=== PATIENT | female | born 1975 | race Caucasian/White ===

== ENCOUNTER → 2023-12-13 12:42 | Outpatient (REF) | payer MEDICARE, MEDICAID, SELFPAY | LOC: WDC 12:42 | PROVIDERS: ATTENDING PHYSICIAN Obstetrics & Gynecology; FAMILY PHYSICIAN Internal Medicine | DX: Z12.31 Encounter for screening mammogram for malignant neoplasm of breast (principal) | CPT/HCPCS: 77063; 77067 ==

== ENCOUNTER → 2024-02-02 10:54 | Outpatient (REF) | payer MEDICARE, MEDICAID, SELFPAY | LOC: HWRAD 10:54 | PROVIDERS: ATTENDING PHYSICIAN Internal Medicine | DX: E04.2 Nontoxic multinodular goiter (principal) | CPT/HCPCS: 76536 ==

== ENCOUNTER → 2024-04-26 15:33 | Outpatient (REF) | payer MEDICARE, MEDICAID, SELFPAY | LOC: RCS 15:33 | PROVIDERS: ATTENDING PHYSICIAN Family Medicine | DX: K02.9 Dental caries, unspecified (principal) | CPT/HCPCS: 93306 ==

== ENCOUNTER → 2024-09-14 10:02 | Outpatient (REF) | payer MEDICARE, MEDICAID, SELFPAY | LOC: RAD 10:02 | PROVIDERS: ATTENDING PHYSICIAN Family Medicine | DX: M54.2 Cervicalgia (principal) | CPT/HCPCS: 72050 ==

== ENCOUNTER 2025-04-15 04:53 | Inpatient (IN) | payer MEDICARE, MEDICAID, SELFPAY ==
[2025-04-14 22:33] VITALS: BP 117/59
[2025-04-14 22:41] LABS: Glucose - Point of Care 95 mg/dl (70-99)
[2025-04-14 23:00] VITALS: BP 113/43
[2025-04-14 23:08] VITALS: BP 113/43; BMI 33.1
[2025-04-15] VITALS (16 sets, daily range): BP systolic 98–126; BP diastolic 55–74; PULSE 70; O2SAT 96–97; BMI 32.3
--- NOTE | 2025-04-15 00:25 | ED.GENMED ---
History of Present Illness
General
Chief Complaint: Change in Mental Status
Source: aged or disabled carer
Exam Limitations: non verbal-adult, altered mental status and developmental stage
Time Seen by Provider: 04/14/25 23:34
Nursing documentation reviewed up to this point in time: agreed with
History of Present Illness
History of Present Illness:
49-year-old female with Down syndrome absence seizure's presents with lethargy, weakness onset around 6 PM right-sided facial weakness and right arm weakness, she took her normal evening meds, she looks tired here although staff states that is her
usual self, she is nonverbal gets around okay no trauma no access to any alcohol no access to extra meds no recent seizures
Past History
Past History
ED Past Medical History: Seizures, Psychiatric and Other (Down's syndrome)
ED Past Surgical History: None
Social History
Tobacco: Non-smoker
Alcohol: None
Drug: None
Personal: Single
Living: other (Support home)
Employment: Not employed
Family History
Family History: Unable to obtain
Review of Systems
Review of Systems
Other source history: other (Caregiver)
All Other Systems: Not applicable
Phy Exam
Physical Exam
Physical Exam:
Physical Exam
General: 49 female sleepy easily arousable follows simple command typical features of Down's
Neck: No tongue
Heart: Regular
Lungs: no acute respiratory distress. clear bilaterally
Abdomen: Obese soft
Neuro: Follows simple commands right facial palsy drift in the right upper extremity
Skin: no rash
Psychiatric: Cooperative flat affect
Extremities: no edema.
Course
Orders/Labs/Results
Orders:
Orders
04/15/25 00:01
CT Head W/o Iv Contrast Urgent
Comment:
Reason For Exam: right sided weakenss
EEG [Rapid Point of Care EEG (ED/ICU ONLY)] Q1H
Indications for use:: Altered Mental Status
04/15/25 00:02
Urinalysis Reflex To Culture Urgent
04/15/25 00:16
Complete Blood Count/With Diff Urgent
Comprehensive Metabolic Panel Urgent
Lyme Progressive Urgent
04/15/25 00:27
Add On- LAB Urgent
Tests Added?: Lyme progressive
04/15/25 01:20
Aspirin 325 mg PO NOW STA
04/15/25 01:21
Electrocardiogram (*1) Urgent
Reason for Study: TIA/Stroke
EKG- Treatment ONCE
Abnormal Lab Results
04/15/25
00:16
MCH 32.2 H pg
(27.0-31.0)
MPV 11.4 H fL
(7.4-10.4)
BUN 18 H mg/dl
(7-17)
04/15/25 00:16
04/15/25 00:16
Vital Signs
Initial and Last Documented VS:
Initial Vital Signs
BP
117/59
04/14/25 22:33
Last Documented Vital Signs
Pulse Resp BP Pulse Ox
67 18 122/74 100
04/14/25 23:08 04/14/25 23:08 04/15/25 00:15 04/15/25 01:03
*Radiology
Radiology exam reviewed: radiology read reviewed
*Pulse Oximetry
SaO2: 98
Oxygen Mode of Delivery: Room air
Patient hypoxic: no
*EKG
Interpreted by ED Provider?: Yes
Interpretation: normal
Comparison EKG: no comparison EKG present
Heart Rate: 78
Rate: normal
Rhythm: sinus
Ischemia: no ischemia
*Professional Athletes Coach Interpretation
Rate: normal
Interpretation: normal
Heart Rate: 78
Rhythm: sinus
*Critical Care Note
Total Time (30-74mins, 75-104mins- exclusive of procedures): 11
Update Note
Update Note:
1:15 AM, reviewed vision radiology subacute left basal ganglia stroke
Think this would explain her right sided symptoms
I do not believe the patient is a TNK candidate due to unclear onset likely more than 4-1/2 hours
Will keep her in the hospital started on aspirin
ED Attending Note
-
Portions of this chart may have been created with voice recognition software.� Occasional wrong word or��sound alike� substitutions may have occurred due to the inherent limitations of voice recognition software.
Discharge Plan
Departure
Patient Disposition: Admit
Date of Disposition: 04/15/25
Time of Disposition: 01:21
Admit to: Telemetry
Presentation/result/management discussed w/ accepting MD/DO: Hospitalist
Patient with high blood pressure during this ER visit?: No
Covid-19: Not Applicable
Discharge Problem:
Acute CVA (cerebrovascular accident)
Prescriptions:
No Action
mometasone 0.1 % ointment
1 applic topical PRN PRN (Reason: itchy)
fluvoxamine 50 MG tablet
100 mg PO DAILY
fluticasone propionate [Flonase Allergy Relief] 9.9 ML spray,suspension
9.9 ml NS DAILY
ciclopirox 15 GM cream
15 gm TP DAILY
cholecalciferol (vitamin D3) [Vitamin D3] 2,000 UNIT capsule
2,000 unit PO DAILY
Referrals:
Mata Whatley MD [Family Provider, Family Practice]
Interventions
Interventions:
*Risk Screen - Suicide Last Done: 04/14/25 23:08
*General Assessment Last Done: 04/14/25 23:08
*Neglect/Abuse Screening Last Done: 04/14/25 23:08
*ED- Fall Risk Assessment Last Done: 04/14/25 23:08
*ED COVID-19 Vaccine History Last Done: 04/14/25 23:08
ED- Pulmonary Assessment Last Done: 04/15/25 01:08
ED- Neurological Assessment Last Done: 04/15/25 01:08
ED- Cardiac Assessment Last Done: 04/15/25 01:08
Discharge Date and Time
Print Language: CZECH
[2025-04-15 00:52] LABS: Hematocrit 43.6 % (37.0-47.0); Hemoglobin 14.5 g/dL (12.0-16.0); Mean Corp Hgb Conc. 33.3 g/dL (33.0-37.0); Mean Corpuscular Volume 96.9 fL (81.0-99.0); Nucleated Red Blood Cells % 0 %; Platelet Count 210 10^3/uL (130-400); Red Cell Dist. Width 13.3 % (11.5-14.5)
[2025-04-15 00:56] LABS: ALT (SGPT) 26 U/L (0-35); AST (SGOT) 25 U/L (14-36); Albumin 4.4 g/dl (3.5-5.0); Alkaline Phosphatase 59 U/L (38-126); Blood Urea Nitrogen 18 mg/dl (7-17); Calcium 9.6 mg/dl (8.4-10.2); Carbon Dioxide 29 mmol/L (22-30); Chloride 107 mmol/L (98-107); Estimated Creatinine Clearance 69 ml/min; Glucose 96 mg/dl (70-99); Potassium 4.5 mmol/L (3.5-5.1); Sodium 141 mmol/L (135-145); Total Protein 6.8 g/dl (6.3-8.2); eGFR > 60.00
[2025-04-15] MEDS: ASPIRIN 325 MG PO (01:39)
--- NOTE | 2025-04-15 04:41 | HPS.HSE ---
Family Physician
-
Family Physician: Mata Whatley
Chief Complaint
-
Lethargy
History of Present Illness
Patient is a 49y F with PMH significant for Down's syndrome and SHELDON who presents to ED from care facility due to lethargy and altered mental status. History obtained from caregiver at the bedside and ED report. Caregiver present states that
patient was noted to be sleepy / lethargic and was unable to walk up the steps this evening. She was brought to the ED for further evaluation. No other / specific recent complaints or noted symptoms.
Caregiver here now states that patient does speak at baseline - other notes report that she is non-verbal.
At the time of my examination, patient is sleeping. She opens eyes to tactile and verbal stimuli. She does not answer questions or follow commands at present.
Medical History
Past Medical History
Past Medical History: Reports Other
Additional Past Medical History:
Trisomy 21
Anxiety / Depression
SHELDON (resolved after T&A)
Obesity
Past Surgical History: Reports Other
Additional Past Surgical History:
T&A
Social History
Tobacco: Non-smoker
Alcohol: None
Drug: None
Family History
Family History: Unable to Obtain
Allergies / Home Medications
Allergies reflects when Allergies were last updated in [email or web address].
Home Medications with original date entered in [email or web address]
Allergy/Medication List:
Med list not currently available.
Caregiver notes that staff will bring list in the AM.
If medication reconciliation has not been performed, why?: Medication List N/A
Review of Systems
-
Unable to obtain full review of systems at this time due to: Patient Non-verbal
Physical Exam
Vital Signs
Vital Signs
Pulse Resp BP Pulse Ox
61 17 102/57 98
04/15/25 02:00 04/15/25 02:00 04/15/25 02:00 04/15/25 02:00
Physical Exam
General: Other (49y F sleeping at present and lethargic / poorly responsive.)
HEENT: Moist mucous membranes and PERRLA
Respiratory: Clear; No Wheezes, Rales or Rhonchi
Cardiac: S1/S2 and Regular Rhythm; No Murmur
GI: Soft, Non Tender, Non Distended and Normal Bowel Sounds
Musculoskeletal: No Clubbing, No Cyanosis and No Edema
Neuro: Other (Very difficult neurologic exam as patient not following commands / participating. Probable R sided weakness in the UE and LE compared to the L.)
Laboratory Results
-
04/15/25 00:16
04/15/25 00:16
Laboratory Results
Total Bilirubin 0.9 mg/dl (0.2-1.3) 04/15/25 00:16
AST 25 U/L (14-36) 04/15/25 00:16
ALT 26 U/L (0-35) 04/15/25 00:16
Alkaline Phosphatase 59 U/L (38-126) 04/15/25 00:16
Impression/Plan
-
A/P: Patient is a 49y F with PMH significant for Down's syndrome who presents to ED for evaluation of lethargy.
Subacute CVA
- Admit for further evaluation and treatment.
- CT scan done in the ED shows probable subacute CVA in the L basal ganglia.
- R weakness appreciated on exam c/w this finding.
- ASA daily for now.
- Neurology evaluation.
- BP already normal / low.
- MRI in AM.
- PT / OT / Speech evaluations.
Lethargy / Altered Mental Status
- ? if this is secondary to CVA as noted above.
- Vitals / labs are otherwise unremarkable.
- No focal symptoms / recent complaints to suggest other process / etiology.
- Follow for clinical improvement.
Down's Syndrome
Anxiety / Depression
- Reconcile meds when able in the AM.
- Resume appropriate medications.
DVT Prophylaxis: SCDs
Code Status: Full
--- NOTE | 2025-04-15 06:30 | PTCARENOTE ---
Pt arrived to unit from ED via stretcher. A&O to self. Pt has Down Syndrome and caregiver at the bedside. Pt pulled over from stretcher to bed. Admission completed and NIH performed on patient. NIH of 8. Care handed off to day shift RN. Plan of care
ongoing.
--- NOTE | 2025-04-15 07:13 | CON.NEURO ---
Consultation
Order
Date of Consultation: 04/15/25
Requesting Provider: Jose Angel Kwan DO
Reason for Consult: CVA
Neurology Consultation Note.
HPI: This is a 49-year-old woman who presented to [facility] on 04/14/2025 with encephalopathy. According to her health club manager, Renea, the patient experienced an episode yesterday where she was 'a little off.'
The patient was observed to have difficulty drinking, with liquid spilling from her mouth. She also experienced dizziness when going up stairs and was described as being more lethargic than usual.
Ms. Armijo' baseline has cognitive deficits and ambulates with no assistive device. She can take shower and dress independently.
ER VS: 117/59, 67, afebrile
EKG: QTc Int : 422 ms
PDMP:none
Labs: CBC, comp�unremarkable.
CT head wo contrast�report is pending.
PMH: Down's syndrome, POTS, OCD, DLP, SHELDON, BMI 32, lactose intolerance, vitamin D deficiency, scoliosis, LS radiculopathy
PSH: Tonsillectomy
SH: lives with caregiver, independent in ambulation
FH: unknown
All:NKDA
ROS: Negative for headache, change in vision or strength.
General: Short flattened face and nose bridge, upward slanting, almond-shaped eyes�with epicanthal folds, Short neck In no acute distress.
Cardio: Regular rate and rhythm without murmur. Extremities are without cyanosis or edema.
Neuro:
Mental Status: Alert, oriented to name and person only. Did not know her age, location. Follows simple requests intermittently. No hemineglect.
Cranial Nerves: Right corneal opacification. Orthophoric primary gaze. Extraocular movement intact. Blink to threat bilaterally. Impaired hearing. Right facial weakness with activation. Mild to moderate dysarthria. Severe hypophonia.
Motor: Reduced motor tone. All limbs are antigravity symmetrically purposefully.
Reflexes: Limited exam due to cooperation. Negative grasp and Nara's bilateral.
Sensory: Localizes noxious stimuli
Coordination: No tremors myoclonic movements
Gait: deferred
Assessment and Plan:
I. Right facial weakness.
II. Down syndrome.
III. Chronic encephalopathy. 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
- Fall precautions
- Brain MRI without doni
- Aspirin 81 mg once a day
- Please check vitamin B12, TFTs
- management will be based on brain MRI results.
- OP sleep study. Prevalence of SHELDON in adults with trisomy 21-�35�100%, with some studies suggesting nearly universal occurrence in older adults with Down syndrome. About half of affected children have severe SHELDON.
I personally reviewed all radiology and labs along with past medical records pertinent to current medical problems. Total time spent in patient care is 60 minutes.
Thank you for allowing us to participate in the care of this patient. We will continue to follow. Please do not hesitate to contact us with any questions or concerns.
Subjective/Objective
Subjective Data
Date of Service: April 15, 2025
Objective Data
Vital Signs
Temp Pulse Resp BP Pulse Ox
36.4 C 77 18 102/61 94
04/15/25 06:30 04/15/25 06:30 04/15/25 06:30 04/15/25 06:30 04/15/25 06:30
Lab Results
04/15/25 00:16
04/15/25 00:16
Sodium 141 mmol/L (135-145) 04/15/25 00:16
Potassium 4.5 mmol/L (3.5-5.1) 04/15/25 00:16
BUN 18 mg/dl (7-17) H 04/15/25 00:16
Glucose 96 mg/dl (70-99) 04/15/25 00:16
Calcium 9.6 mg/dl (8.4-10.2) 04/15/25 00:16
Patient Allergies
dairy Allergy (Uncoded 06/29/20 14:55)
Nausea / Vomiting
Medications
-
Active Medications
Generic Name Dose Route Start Last Admin
Trade Name Freq PRN Reason Stop Dose Admin
Acetaminophen 650 mg 04/15/25 06:43
Acetaminophen 325 Mg Tablet PO 05/13/25 06:42
Q4HPRN PRN
Mild Pain / Temp > 101
Aspirin 81 mg 04/15/25 08:00
Aspirin 81 Mg Chewable Tablet PO 05/13/25 07:59
DAILY MARCIO
Sodium Chloride 0 flush 04/15/25 07:00
Sodium Chloride 0.9% (Flush) Syringe IV 05/13/25 06:59
PER PROTOCOL MARCIO
Home Medications
�Medication �Instructions �Recorded
cholecalciferol (vitamin D3) 50 2,000 unit PO DAILY 06/10/17
mcg (2,000 unit) capsule (Vitamin
D3)
ciclopirox 0.77 % topical cream 15 gm TP DAILY 06/10/17
fluticasone propionate 50 9.9 ml NS DAILY 06/10/17
mcg/actuation nasal
spray,suspension (Flonase Allergy
Relief)
fluvoxamine 50 mg tablet 100 mg PO DAILY 06/10/17
mometasone 0.1 % topical ointment 1 applic topical PRN PRN itchy 06/10/17
Vital Signs and Labs
-
Vital Signs and Labs:
Vital Signs
Temp Pulse Resp BP Pulse Ox
36.4 C 77 18 102/61 94
04/15/25 06:30 04/15/25 06:30 04/15/25 06:30 04/15/25 06:30 04/15/25 06:30
Lab Results
04/15/25 00:16
04/15/25 00:16
Sodium 141 mmol/L (135-145) 04/15/25 00:16
Potassium 4.5 mmol/L (3.5-5.1) 04/15/25 00:16
BUN 18 mg/dl (7-17) H 04/15/25 00:16
Glucose 96 mg/dl (70-99) 04/15/25 00:16
Calcium 9.6 mg/dl (8.4-10.2) 04/15/25 00:16
Medications
-
Medications:
Generic Name Dose Route Start Last Admin
Trade Name Freq PRN Reason Stop Dose Admin
Acetaminophen 650 mg 04/15/25 06:43
Acetaminophen 325 Mg Tablet PO 05/13/25 06:42
Q4HPRN PRN
Mild Pain / Temp > 101
Aspirin 81 mg 04/15/25 08:00
Aspirin 81 Mg Chewable Tablet PO 05/13/25 07:59
DAILY MARCIO
Sodium Chloride 0 flush 04/15/25 07:00
Sodium Chloride 0.9% (Flush) Syringe IV 05/13/25 06:59
PER PROTOCOL MARCIO
Home Medications
-
Home Medications
cholecalciferol (vitamin D3) 50 mcg (2,000 unit) capsule (Vitamin D3) 2,000 unit PO DAILY 06/10/17
ciclopirox 0.77 % topical cream 15 gm TP DAILY 06/10/17
fluticasone propionate 50 mcg/actuation nasal spray,suspension (Flonase Allergy Relief) 9.9 ml NS DAILY 06/10/17
fluvoxamine 50 mg tablet 100 mg PO DAILY 06/10/17
mometasone 0.1 % topical ointment 1 applic topical PRN PRN itchy 06/10/17
[2025-04-15] MEDS: LOW STRENGTH ASPIRIN 81 MG PO (08:44)
--- NOTE | 2025-04-15 09:15 | PTCARENOTE ---
This RN and an additional RN performed an NIH at bedside. NIH score increased from 8 from from nightshift network operations lead to 1 for dayshift network operations lead. Facial droop assessed at rest, ataxia in RUE & RLE observed, and pt arousable but drowsy. TT
neurology to notify and ask whether a rapid should be called. Neurology informed this RN to not to call a rapid. Neurology made aware of assessment.
[2025-04-15 09:56] LABS: Glycohemoglobin (HgbA1c) 5.5 % (4.0-5.6)
--- NOTE | 2025-04-15 11:20 | W.PN.HOSP.TC ---
Today's Communication/Plan
-
Awaiting mRI
Assessment / Plan
Assessment / Plan
49y woman with PMH significant for Down's syndrome who presents to ED for evaluation of lethargy. CT found probable stroke.
Questionable small subacute infarct in the left basal ganglia. MRI would be of greater sensitivity.
1. Possible Subacute CVA
- R weakness appreciated on exam c/w this finding.
- ASA daily for now.
- Neurology evaluation.
- BP already normal / low.
- MRI pending.
- PT / OT / Speech evaluations.
2. Lethargy / Altered Mental Status
- possible that this is secondary to CVA as noted above.
- Vitals / labs are otherwise unremarkable.
- No focal symptoms / recent complaints to suggest other process / etiology.
- Follow for clinical improvement.
3. Down's Syndrome
Anxiety / Depression
- Resume appropriate medications.
- be mindful not to worsen sedation
DVT Prophylaxis: SCDs
Code Status: Full
Anticipated Discharge: 24 - 48 hours
Subjective/Interval History
-
Date of Service: April 15, 2025
Appears comfortable
Objective Data
-
Labs:
Laboratory Results
04/15/25
00:16
WBC 5.2
Hgb 14.5
Hct 43.6
Plt Count 210
Sodium 141
Potassium 4.5
Chloride 107
Carbon Dioxide 29
BUN 18 H
Creatinine 0.9
Glucose 96
Calcium 9.6
Total Bilirubin 0.9
AST 25
ALT 26
Alkaline Phosphatase 59
Vital Signs:
Vital Signs
Temp Pulse Resp BP Pulse Ox
98.4 F 69 18 117/69 93
04/15/25 08:00 04/15/25 08:00 04/15/25 08:00 04/15/25 08:00 04/15/25 08:00
Review of Systems
-
History Source: Patient
All other systems: Reviewed and negative
Physical Exam
-
General: Well Nourished, No Apparent Distress, Comfortable and Obese
HEENT: Moist Mucous Membranes
Respiratory: Clear to Auscultation
Cardiac: Regular Rhythm and S1/S2
GI: Soft, Nontender and Nondistended
Musculoskeletal: No Clubbing, No Cyanosis and No Edema
Skin: Warm and Dry
Neuro: Awake and Alert
Psych: Calm
Data Reviewed
-
Labs: Labs Reviewed by me
--- NOTE | 2025-04-15 11:35 | CM ---
Initial assessment completed with pts care team who was at bedside and followed up with call to Father.
Светлана, who is a 49yr female with Down's Syndrome, is admitted with change in mental status and subacute CVA.
At baseline, pt lives alone in a multi level home with 3ste. Pt has 24hr caregivers through [facility].
Prior, Pt is indep with ADLs and her caregivers aide with IADLs such as transportation, cooking, and cleaning.
Per Tank Truck Operator Nurse at [facility], they would appreciate a PT/OT eval to assess potential for increased needs for support at dc.
Pt has no equipment and no hx of SNF/VN
For dc planning, please call [facility], Monika Salazar at [phone]
PCP; Mata Whatley
Pharm; Jeff Lu
PLAN; Return to home. Needs TBD
[2025-04-15 13:18] LABS: Urine Character Clear (Clear)
--- NOTE | 2025-04-15 16:06 | PTCARENOTE ---
Per caregivers at bedside, pt is more drowsy than normal. Pt having difficulty following commands. Caregivers informed this RN that patient always has difficulty following commands but not to this extent. Neurology & MD made aware.
--- NOTE | 2025-04-15 17:18 | PTOTSP ---
Acute Care Evaluation
Pt currently presents with clinical signs of moderate oral dysphagia characterized by prolonged mastication and bolus formation, reduced bolus formation as evident by diffuse oral residue s/p swallow initiations (R>L), reduced oral awareness of
persistent oral residue despite verbal prompting to use strategies to clear, and reduced ability to clear oral residue with strategies provided, as well as mild pharyngeal dysphagia as evident by piecemeal deglutition with both solids and liquids
(i.e., usually 3-5 swallows for a single bite/sip), which could be indicative of pharyngeal residue. No overt s/s of penetration or aspiration noted at bedside. Possible esophageal dysfunction as evident by brief eructation s/p ingestion of liquids
and documented hx of GERD. Pt is at an increased risk for aspiration given her impulsivity/tendency to take very large bites/sips and her inability to follow simple verbal directions at this time.
Pt is also presenting with clinical signs of a significant cognitive linguistic impairment that is a noticeable deviation from her baseline function. For reference, pt is usually able to maintain fully alertness throughout the day and is oriented to
self, , location, and time (for the most part) - pt has a documented moderate intellectual disability at baseline. Pt is able to express her basic wants and needs without issue, though she tends to speak in simple phrases and will converse more
with people with whom she is more familiar. She does better when she is presented with yes/no questions and/or presented with a list of options from which to choose. At times, pt is hesitant/reluctant to verbally express her needs, but those who
have worked with her long enough can usually tell by her nonverbal body language and gestures what she wants, needs, or how she is feeling. Pt's verbal communicative effectiveness is moderately impaired by her low vocal volume, breathy vocal
quality, and dysarthric speech. In terms of her understanding of language, pt is able to read, answer simple questions, and follow directions, though she often needs directives to be repeated to her several times, as she regularly experiences
internal distractions from her OCD fixations.
Presently, pt is exhibiting waxing/waning mentation and thus requiring occasional verbal and tactile prompts to remain sufficiently awake/alert. Pt is exhibiting a R visual neglect and preference for L visual field when communicating with others. Pt
is presenting with reduced orientation/awareness into her situation - she is disoriented to her location, her age, and the current month/year. Pt is presenting with clinical signs of severe expressive aphasia characterized by reduced verbal output,
severe anomia with depicted objects with persistent verbal paraphasias (observed multiple times during exam), inability to repeat simple 1-syllable words, severe alexia, and reduced rote verbalizations. Additionally, pt is presenting with
moderately-severe impaired speech intelligibility due to a breathy and weak vocal quality and persistent dysarthric speech that is worse than her baseline. Lastly, pt is demonstrating clinical signs of severe receptive aphasia characterized by
inability to follow simple 1-step directions despite MAX repetitions, verbal prompting, and visual models, poor accuracy when answering simple yes/no questions, and poor recognition of basic objects depicted in pictures in an array of 6 items.
Recommendations:
- Initiate PO diet of MINCED AND MOIST SOLIDS with THIN LIQUIDS via STRAW and meds whole with water one at a time as tolerated.
- Aspiration precautions: FULL SUPERVISION for all PO intake - pt needs direct assistance to follow the strategies listed, as she is UNABLE to follow simple verbal directions, even with modeling: ensure pt is only taking small bites/sips (set her up
with only a small amount on her fork/spoon; take her cup away after she takes a sip so she is not able to take sequential sips); encourage pt to eat/drink slowly; encourage pt to finish one bite prior to taking a new bite; make sure she is sitting
fully upright when eating and for at least an hour after meals; check to make sure her mouth is fully clear throughout meals - encourage alternating solids/liquids to help clear out any food debris from her R cheek; most importantly, check to make
sure her mouth is fully clear at the end of mealtime (use toothette sponge/swab to clear out remaining food/residue if needed).
- FAMILY LIFE COUNSELOR to f/u re: diet tolerance, use of compensatory strategies/further education for caretakers/staff, determine pt's candidacy for further diet upgrades, and to determine if pt would benefit from an instrumental swallow study.
- FAMILY LIFE COUNSELOR to f/u to provide tx for newly acquired speech, voice, receptive, expressive, and cognitive linguistic deficits.
- Consider repeat CTH today if MRI Brain cannot be completed - the severity of pt's presentation during this exam, pt's waxing/waning mentation, and pt's most recent increase in NIHSS is concerning that there may have been an acute change since her
last CTH.
--- NOTE | 2025-04-15 18:40 | PTCARENOTE ---
Per caregiver at bedside, pt coughed with sip of thin liquid. This RN at bedside did not witness coughing. Pt resting in bed comfortably. Speech and neurologist made aware. Pt made NPO per swallow screening.
[2025-04-16] VITALS (8 sets, daily range): BP systolic 107–129; BP diastolic 58–78; PULSE 68; BMI 31.1
[2025-04-16] MEDS: LOW STRENGTH ASPIRIN PO (07:31)
[2025-04-16 08:24] LABS: Hematocrit 44.6 % (37.0-47.0); Hemoglobin 14.8 g/dL (12.0-16.0); Mean Corp Hgb Conc. 33.2 g/dL (33.0-37.0); Mean Corpuscular Volume 97.6 fL (81.0-99.0); Platelet Count 214 10^3/uL (130-400); Red Cell Dist. Width 13.3 % (11.5-14.5)
[2025-04-16 08:54] LABS: Blood Urea Nitrogen 16 mg/dl (7-17); Calcium 9.3 mg/dl (8.4-10.2); Carbon Dioxide 27 mmol/L (22-30); Chloride 107 mmol/L (98-107); Estimated Creatinine Clearance 67 ml/min; Glucose 90 mg/dl (70-99); HDL Cholesterol 63 mg/dl; LDL Cholesterol, Calculated 155 mg/dl; Potassium 4.4 mmol/L (3.5-5.1); Sodium 141 mmol/L (135-145); Very Low Density Lipoprotein 20 mg/dl (0-30); eGFR > 60.00
[2025-04-16] MEDS: ASPIRIN 300 MG RECTAL (09:16)
[2025-04-16 12:35] LABS: Vitamin B12 310 pg/ml (239-931)
[2025-04-16 12:57] LABS: Lyme Antibody Screen, EIA Negative (Negative)
--- NOTE | 2025-04-16 13:06 | W.PN.HOSP.TC ---
Today's Communication/Plan
-
Monitor vital signs see plan
Neurology following
MRI brain
Continue with aspirin
Continue dysphagia diet
And statin
Avoid sedation
Discussed in length with caretakers and family at bedside
Assessment / Plan
Assessment / Plan
49y woman with PMH significant for Down's syndrome who presents to ED for evaluation of lethargy. CT found probable stroke.
Questionable small subacute infarct in the left basal ganglia. MRI would be of greater sensitivity.
Possible Subacute CVA
- R weakness appreciated on exam c/w this finding.
- Continue daily aspirin
Neurology following
History of orthostatic hypotension
MRI pending
PT/OT
Per speech recommendation continue with dysphagia diet
A1c 5.5
Lethargy / Altered Mental Status
- possible that this is secondary to CVA as noted above. Will hold trazodone and methocarbamol
- Vitals / labs are otherwise unremarkable.
- No focal symptoms / recent complaints to suggest other process / etiology.
- Follow for clinical improvement.
Down's Syndrome
Anxiety / Depression
- Resume appropriate medications
- Monitor for sedation
DVT Prophylaxis: SCDs
Code Status: Full
General: No acute distress
HEENT: Moist mucous membranes and PERRLA
Respiratory: Clear; No Wheezes, Rales or Rhonchi
Cardiac: S1/S2 and Regular Rhythm; No Murmur
GI: Soft, Non Tender, Non Distended and Normal Bowel Sounds
Musculoskeletal: No Clubbing, No Cyanosis and No Edema
Neuro: Other (Very difficult neurologic exam as patient not following commands)
I spent a total of 52 minutes with the patient or on the floor. More than 50% of this time involved counseling and coordination of care.
Anticipated Discharge: 24 - 48 hours
Subjective/Interval History
-
Date of Service: April 16, 2025
denies pain
Objective Data
-
Labs:
Laboratory Results
04/16/25
07:53
WBC 4.4 L
Hgb 14.8
Hct 44.6
Plt Count 214
Sodium 141
Potassium 4.4
Chloride 107
Carbon Dioxide 27
BUN 16
Creatinine 0.9
Glucose 90
Calcium 9.3
Vital Signs:
Vital Signs
Temp Pulse Resp BP Pulse Ox
98.3 F 86 20 129/78 100
04/16/25 11:18 04/16/25 11:18 04/16/25 11:18 04/16/25 11:18 04/16/25 11:41
I&O
04/15/25 04/16/25 04/17/25
06:59 06:59 06:59
Intake Total 0 / 0
Balance 0 / 0
--- NOTE | 2025-04-16 14:27 | CM ---
Patient seen at bedside with caregivers Hilary
Await MRI
PT rec Acute Rehab
tt hospitalist physiatry
Left message with patient father Delbert
caregivers agreeable with [facility]
referral entered in [facility]
PLAN: Acute rehab when medically stable
--- NOTE | 2025-04-16 14:42 | CM ---
Patient seen at bedside with caregiver Hilary
Await MRI
PT rec Acute Rehab
caregivers agreeable with [facility] & stated dad agreeable with [facility]
Left message with dad
[facility]
Updated [facility] from [facility]
PLAN: Acute Rehab, pending bed availability when stable
[2025-04-16] MEDS: MOBIC 7.5 MG PO (14:47)
[2025-04-16] MEDS: ZYRTEC 10 MG PO ×2 (14:48→21:29)
[2025-04-16] MEDS: SINGULAIR 10 MG PO (14:48)
[2025-04-16] MEDS: REFRESH CELLUVISC GEL 1 DROPS BOTH EYES ×3 (14:48→21:42)
[2025-04-16] MEDS: LEXAPRO 20 MG PO ×2 (14:48→21:29)
[2025-04-16] MEDS: LIPITOR 40 MG PO (17:21)
[2025-04-16] MEDS: ERYTHROMYCIN 0.5% OPHTHALMIC OINTMENT 5 APPLIC OPHTH (21:34)
[2025-04-16] MEDS: MELATONIN 5 MG PO (23:36)
--- NOTE | 2025-04-17 00:51 | W.PN.UPDATE ---
Update Note
Progress Note Update
0030 pt having anxiety/panic attack. Keeps attempting to get oob and 'wants to go home.' Caregivers at bedside. Due to being lethargic since admit, attempts are being made to hold sedation medications. PT normally takes 10mg melatonin and trazadone
at home nightly for sleep. Will trial melatonin 5mg.
Discusses with caregivers that likely due to now being more awake today she is likely having increased anxiety due to not being in her own environment and being able to roam freely as she normally does. Also since the stroke she has not recognized
any of her caregivers and they have known her for years. All of this is likely very frightening for Светлана. Caregiver talked to long term director who did mention Светлана had taken ativan before for anxiety. Does not take it any longer as lexapro
has been helping.
Will add a small dose of ativan po prn severe anxiety only. Discussed with RN and caregivers.
[2025-04-17] MEDS: REFRESH CELLUVISC GEL 1 DROPS BOTH EYES ×2 (05:56→21:18)
[2025-04-17 06:00] VITALS: BP 121/74; BMI 31.9
--- NOTE | 2025-04-17 06:35 | PTCARENOTE ---
Patient became agitated and restless overnight beginning at approximately 11:15pm. Verbalizes 'I need to get out of here. Staff attempted to reorient patient on need for provider review of recent imaging prior to discharge. Caregiver at beside
verbalizes a history of such episodes requiring low dose Ativan for resolution. Overnight provider, Callie, contacted. Melatonin 5mg ordered and administered. Agitation persisted for approximately one hour prior to patient being able to rest.
Appears to rest comfortably for the remainder of the shift.
[2025-04-17 07:30] LABS: Hematocrit 44.3 % (37.0-47.0); Hemoglobin 14.8 g/dL (12.0-16.0); Mean Corp Hgb Conc. 33.4 g/dL (33.0-37.0); Mean Corpuscular Volume 96.7 fL (81.0-99.0); Nucleated Red Blood Cells % 0 %; Platelet Count 237 10^3/uL (130-400); Red Cell Dist. Width 13.1 % (11.5-14.5)
[2025-04-17 07:31] VITALS: BP 115/69
[2025-04-17] MEDS: MOBIC 7.5 MG PO (08:00)
[2025-04-17] MEDS: SINGULAIR 10 MG PO (08:00)
[2025-04-17] MEDS: OSCAL 500 + D 1000 MG PO (08:00)
[2025-04-17] MEDS: LOW STRENGTH ASPIRIN 81 MG PO (08:04)
[2025-04-17] MEDS: REFRESH CELLUVISC GEL BOTH EYES (08:07)
[2025-04-17 08:11] LABS: Blood Urea Nitrogen 16 mg/dl (7-17); Calcium 8.9 mg/dl (8.4-10.2); Carbon Dioxide 27 mmol/L (22-30); Chloride 105 mmol/L (98-107); Estimated Creatinine Clearance 68 ml/min; Glucose 93 mg/dl (70-99); Potassium 4.6 mmol/L (3.5-5.1); Sodium 140 mmol/L (135-145); eGFR > 60.00
[2025-04-17] MEDS: PLAVIX 75 MG PO (09:20)
--- NOTE | 2025-04-17 09:34 | W.PN.NEURO.1 ---
Today's Communication / Plan
-
Outpatient cardiology evaluation for implantable cardiac rhythm monitoring
Check Echo
Check CT-A head and neck
Aspirin and Clopidogrel then ASA alone after 21 days
Start vitamin B12 replacement due to deficiency (level less than 400)
6 weeks from now check for hypercoagulable states
Neuro Assessment/Plan
Assessment
Acute onset change in mental status due to anterior and posterior circulation stroke involving the left basal ganglia and left frontal lobe, in a patient with Down syndrome
Plan
Outpatient cardiology evaluation for implantable cardiac rhythm monitoring
Check Echo
Check CT-A head and neck
Aspirin and Clopidogrel then ASA alone after 21 days
Start vitamin B12 replacement due to deficiency (level less than 400)
6 weeks from now check for hypercoagulable states
Will follow pending results
Subjective/Objective
Subjective Data
Date of Service: April 17, 2025
Objective Data
Vital Signs
Temp Pulse Resp BP Pulse Ox
36.8 C 73 16 115/69 96
04/17/25 07:31 04/17/25 07:31 04/17/25 07:31 04/17/25 07:31 04/17/25 07:31
Lab Results
04/17/25 06:59
04/17/25 06:59
Sodium 140 mmol/L (135-145) 04/17/25 06:59
Potassium 4.6 mmol/L (3.5-5.1) 04/17/25 06:59
BUN 16 mg/dl (7-17) 04/17/25 06:59
Glucose 93 mg/dl (70-99) 04/17/25 06:59
Calcium 8.9 mg/dl (8.4-10.2) 04/17/25 06:59
LDL Cholesterol, Calc 155 mg/dl 04/16/25 07:53
Vitamin B12 310 pg/ml (239-931) 04/16/25 07:53
Patient Allergies
egg Allergy (Mild, Verified 04/15/25 17:12)
Nausea / Vomiting
dairy Allergy (Uncoded 06/29/20 14:55)
Nausea / Vomiting
Review of Systems
-
Unable to obtain full review of systems at this time due to: Dementia
History Source: Patient
All other systems: Reviewed and negative
Physical Exam
-
General: No Apparent Distress and Appears Stated Age
HEENT: Anicteric and Moist Mucous Membranes
Neck: Full Range of Motion
Respiratory: No Dyspnea
Cardiac: No JVD
GI: Non-distended
Skin: Unremarkable
Extremities: No Clubbing, No Cyanosis and No Edema
Psych: Negative Intact Judgement/Insight
Extended Neurological Exam
Mood & Affect: Affect Unremarkable
Attention Span & Concentration: Awake and Other (Moderate difficulty with single step requests); Negative Alert or Interactive (Intermittently interactive and at times refusing examiners requests)
Memory: Able to Recall (Own name) and Unable to Recall Personal History
Tremor: Hand Tremor Absent and Head Tremor Absent
Involuntary Movement: None
Speech: Moderately Reduced Output; Negative Quality Unremarkable (Mildly thick)
Cranial Nerve II: Left Eye: Pupillary Reactivity Unremarkable, Pupillary Size Unremarkable and Visual Adam Grossly Intact
Cranial Nerve II: Right Eye: Pupillary Reactivity Unremarkable, Pupillary Size Unremarkable and Visual Adam Grossly Intact
Cranial Nerves III, IV, : Extraocular Movement: Grossly Intact
Cranial Nerve V: Facial Sensation: Unable to Assess
Cranial Nerve VII: Facial Symmetry: Normal Facial Symmetry
Cranial Nerve VIII: Hearing: Unremarkable Hearing to Normal Conversational Volume
Cranial Nerves IX, X: Palate Movement: Unable to Assess
Cranial Nerve XI: Shoulder Shrug: Unremarkable
Cranial Nerve XII: Tongue Protusion: Unable to Assess
Muscle Strength, Overall: Spontaneously Moves (All extremities)
Muscle Bulk & Tone: Bulk Unremarkable and Tone Unremarkable
Pronator Drift: Unable to Assess
Cold Sensation: Unable to Assess
Vibration Sensation: Unable to Assess
Touch Sensation: Unremarkable
Coordination: Reaches for Objects without Difficulty
Gait & Station: Unable to Assess
Data Reviewed
-
Labs: Report Reviewed
Reviewed with: Physician, Patient and Other
Old Records: Summarized
--- NOTE | 2025-04-17 11:47 | W.PN.HOSP.TC ---
Today's Communication/Plan
-
Monitor vital sign
see plan
Continue with dual antiplatelet therapy
Echo, CTA
Neurology following
PMNR
Discussed with family
Assessment / Plan
Assessment / Plan
49y woman with PMH significant for Down's syndrome who presents to ED for evaluation of lethargy. CT found probable stroke.
Acute CVA
- R weakness appreciated on exam c/w this finding.
- Continue daily aspirin, added Plavix
Increase statin to high-dose
Neurology following
History of orthostatic hypotension
MRI with acute CVA. Echo 04/17 with preserved EF. CTA head and neck pending
PT/OT recommended acute rehab, PMNR consulted
Per speech recommendation continue with dysphagia diet
A1c 5.5
Lethargy / Altered Mental Status
- possible that this is secondary to CVA as noted above. Will hold trazodone and methocarbamol
- Vitals / labs are otherwise unremarkable.
- No focal symptoms / recent complaints to suggest other process / etiology.
- Follow for clinical improvement.
Down's Syndrome
Anxiety / Depression
- Resume appropriate medications
- Monitor for sedation
DVT Prophylaxis: SCDs
Code Status: Full
General: No acute distress
HEENT: Moist mucous membranes and PERRLA
Respiratory: Clear; No Wheezes, Rales or Rhonchi
Cardiac: S1/S2 and Regular Rhythm; No Murmur
GI: Soft, Non Tender, Non Distended and Normal Bowel Sounds
Musculoskeletal: No Clubbing, No Cyanosis and No Edema
Neuro: Other (Very difficult neurologic exam as patient not following all the commands)
I spent a total of 52 minutes with the patient or on the floor. More than 50% of this time involved counseling and coordination of care.
Anticipated Discharge: 24 - 48 hours
Subjective/Interval History
-
Date of Service: April 17, 2025
Agitated overnight
Objective Data
-
Labs:
Laboratory Results
04/17/25
06:59
WBC 7.6
Hgb 14.8
Hct 44.3
Plt Count 237
Sodium 140
Potassium 4.6
Chloride 105
Carbon Dioxide 27
BUN 16
Creatinine 0.9
Glucose 93
Calcium 8.9
Vital Signs:
Vital Signs
Temp Pulse Resp BP Pulse Ox
98.3 F 73 16 115/69 96
04/17/25 07:31 04/17/25 07:31 04/17/25 07:31 04/17/25 07:31 04/17/25 11:18
I&O
04/16/25 04/17/25 04/18/25
06:59 06:59 06:59
Intake Total 0 / 0 1000 / 1000
Balance 0 / 0 1000 / 1000
[2025-04-17] MEDS: VITAMIN B-12 1000 MCG PO (12:05)
[2025-04-17 12:12] VITALS: BP 132/68
--- NOTE | 2025-04-17 16:15 | CM ---
Patient has caregiver Queta & Jade.
PT indicated Acute Rehab
Spoke with Dionne from [facility] pt looks appropriate. [facility] /[facility] was calling pts dad,
PM&R consult ordered Awaiting eval .
Referral is in care port for [facility].
LM with [facility] career and transition teacher.
PLAN: Acute Rehab, pending availability
[2025-04-17 16:24] VITALS: BP 111/74
[2025-04-17] MEDS: LIPITOR 80 MG PO (16:33)
--- NOTE | 2025-04-17 17:17 | CON.MD ---
Consultation - Medical
-
Chief Complaint:�Stroke
�
History of Present Illness: 49-year-old Right handed female with PMH (as below) presented to [facility] on 04/15/2025 from care facility with lethargy and altered mental status. Per chart records caregiver had noted the patient being a
little bit off the day before. Patient having difficulty with drinking liquids with them spilling from her mouth. Also noted some dizziness. Had difficulty walking up the steps. Patient noted with right-sided weakness. CT of the head with
questionable small subacute infarct in left basal ganglia. MRI of the brain 04/16/2025 noting acute infarctions with greatest involvement of the left frontal lobe white matter and left lentiform nucleus and small foci of acute infarction in the left
frontal and parietal lobe cortices. 04/17 CT head and neck with a proximal right M1 occlusion with additional changes suggesting chronic disease.
Patient with little input. Does answer mostly yes to questions. Her manufacturing operations manager at bed side noted that she is right handed. Often answers yes but will say no sometimes. Has someone with her 24 hours a day including at the hospital. Overall
Светлана says that she feels OK with no pain. Denies any current concerns.
�
Past Medical History:�Down syndrome, SHELDON, anxiety/depression, SHELDON which resolved after tonsillectomy and adenoidectomy, obesity, lactose intolerance, scoliosis, vitamin D deficiency, lumbosacral radiculopathy
Procedure History:�Tonsillectomy and adenoidectomy
Family History:�Unable to obtain
�
Social History:�
Functional Level Premorbidly:�Has cognitive deficits at base line. Ambulates with supervision without assistive device. She can shower and dress independently. Dependent for homemaking and assisted for IADLs.
Functional Level Currently:�Noted in therapy with left gaze preference and right inattention/neglect. Max assist for grooming, mod assist for toileting. Supervision for lower extremity self-care. Supervision for bed mobility, supervision for
transfers. Ambulated 150 feet with no device and min assist to contact-guard. Frequently bumping into objects on the right side with occasional loss of balance
�
Tobacco:�Denies�
Alcohol:�Denies�
Drug use:�Denies�
�
Lives with:�[facility]
24-hour assistance available:�Yes, has an aide 29/03
Number of floors:�2
# steps to enter:�3
# steps to second floor: Full flight
Potential First floor set up:�No
Driving:�No
Occupation:�On disability
�
�
Allergies:�
Allergy/AdvReac Type Severity Reaction Status Date / Time
egg Allergy Mild Nausea / Verified 04/15/25 17:12
Vomiting
dairy Allergy Nausea / Uncoded 06/29/20 14:55
Vomiting
�
Review of Systems:�Denies any concerns, limited input
Constitutional: (x) Normal _
Eye: (x) Normal _
Ear/Nose/Throat: (x) Normal _
Respiratory: (x) Normal _
Cardiovascular: (x) Normal _
Gastrointestinal: (x) Normal _
Genitourinary: (x) Normal _
Musculoskeletal: (x) Normal _
Integumentary: (x) Normal _
Neurologic: (x) Normal _
Psychiatric: (x) abNormal _has difficulty sleeping at night and takes melatonin 10 mg and trazodone at night at home.
Endocrine: (x) Normal _
Hematologic/Lymphatic: (x) Normal _
Allergic/Immunologic: (x) Normal _
�
Medications:�
Active Current Visit Medication List
Category Date Time Status
Acetaminophen [Tylenol] Med 04/15/25 06:43 Active
650 mg PO Q4HPRN PRN
Aspirin Chewable [Low Strength Aspirin] Med 04/15/25 08:00 Active
81 mg PO DAILY
Atorvastatin [Lipitor] Med 04/17/25 18:00 Active
80 mg PO QPM
Benzocaine/Menthol [Anesthetic Lozenge] Med 04/16/25 14:35 Active
1 lozenge PO QIDPRN PRN
Calcium 200mg(Ca. Carb. 500mg) [Tums Chewable Tablet] Med 04/16/25 14:25 Active
200 mg PO Q6HPRN PRN
Calcium Carbonate/Vitamin D3 [Oscal 500 + D] Med 04/17/25 08:00 Active
1,000 mg PO DAILY
Carbamide Peroxide [Debrox Ear Drops] Med 04/20/25 22:00 Active
5 drop BOTH EARS WEEKLY@2200
Carboxymethylcellulose [Refresh Celluvisc Gel] Med 04/17/25 20:00 Active
1 drops BOTH EYES Q12
Carboxymethylcellulose [Refresh Celluvisc Gel] Med 04/17/25 11:45 Active
1 drops BOTH EYES Q3HPRN PRN
Cetirizine HCl [Zyrtec] Med 04/16/25 14:00 Active
10 mg PO HS
Clopidogrel Bisulfate [Plavix] Med 04/17/25 09:00 Active
75 mg PO DAILY
Cyanocobalamin [Vitamin B-12] Med 04/17/25 11:00 Active
1,000 mcg PO DAILY
Erythromycin (Ilotycin) [Erythromycin 0.5% Ophthalmic Med 04/16/25 14:30 Active
Ointment]
5 applic OPHTH HSPRN PRN
Escitalopram Oxalate [Lexapro] Med 04/16/25 14:00 Active
20 mg PO HS
Flush (0.9% Sodium Chloride) [Flush (Nss)] Med 04/15/25 07:00 Active
See Dose Instructions IV PER PROTOCOL
Lorazepam [Ativan] Med 04/17/25 00:28 Active
0.25 mg PO DAILY PRN
Meloxicam [Mobic] Med 04/16/25 13:15 Active
7.5 mg PO DAILY
Montelukast Sodium [Singulair] Med 04/16/25 14:00 Active
10 mg PO DAILY
Trazodone [Desyrel] Med 04/17/25 21:00 Active
50 mg PO DAILY@2100
�
Vitals:�
Temp Pulse Resp BP Pulse Ox
98.3 F 72 16 111/74 95
04/17/25 16:24 04/17/25 16:24 04/17/25 16:24 04/17/25 16:24 04/17/25 16:24
Height 5 ft
Actual Weight 74.162 kg
Body Mass Index (BMI) 31.9
�
Physical Exam:�
General Appearance/Observation: Well-developed, well-nourished female in no apparent distress.�
Pain/Comfort Assessment: Denies�
Mood/Affect: Mildly guarded
�
Integumentary/Operative Site:�No lesions noted during course of exam
Eyes: Conjunctiva/Lids: normal��� Pupils: pupils equal round and reactive to light
Ears/Nose/Throat: oral mucosa moist, throat clear.������������ Lips/Teeth/Gums: normal
Neck: No muscle spasm or tenderness�
Cardiovascular: Heart: regular, no murmur�
Pulses: dorsalis pedis 2+ bilaterally�
Respiratory: Respiratory Effort/Chest Expansion: normal������ Auscultation: Clear to auscultation bilaterally
Gastrointestinal: abdomen not tender, no distension, normal abdominal bowel sounds
Genitourinary: No Hendrickson�
Rectal Exam: Deferred�
Extremities:�Edema: None�Cyanosis: None�Trophic�changes: None
�
Neurology Exam:
Orientation: Alert, Oriented to self only
Memory: Impaired
Repetition: Limited evaluation with command following
Comprehension: Impaired
Two step command: Impaired
Naming: Not attempted
Cranial Nerves:
�� CNII:�Pupillary light reflex: Intact���Visual Field: Unable to assess with command following
�� CN III, IV, : Extraocular muscles: Limited with command following
�� CN V:�Facial Sensation: Difficult to assess with command following
�� CN VII:�Facial movement: Symmetric
�� CN VIII:�Hearing: Normal
�� CN IX/X:�Speech & swallow: Perseverative with yes answers, able to say no sometimes,�dysphagia, mild dysarthria position of Uvula: Midline
�� CN XI:�Shoulder shrug: Symmetric
�� CN XII:�Tongue protrusion: Midline
Sensory:
�� Light touch: Notes difference between right and left, hard to tell which is decreased
�
Reflexes:
�� Biceps: 2+ bilaterally
�� Brachioradialis: 2+ bilaterally
�� Triceps: 2+ bilaterally
�� Patellar: 2+ bilaterally
�� Achilles: 2+ bilaterally
�� Babinski: Down going bilaterally
�� Clonus: None
�� Nara: Negative bilaterally�
Cerebellar: Dysmetria/Ataxia: Patient unable to complete
Musculoskeletal:Motor: (Manual muscle scale 0-5)�unable to get formal muscle testing. Patient appears to be slightly weaker right side versus left. Is able to move antigravity both sides.
Tone: Normal in all extremities�
Range of Motion: Passively within functional limits in all extremities�
�
Lab Results
Laboratory Data
04/17/25 06:59
04/17/25 06:59
Total Bilirubin 0.9 mg/dl (0.2-1.3) 04/15/25 00:16
AST 25 U/L (14-36) 04/15/25 00:16
ALT 26 U/L (0-35) 04/15/25 00:16
Alkaline Phosphatase 59 U/L (38-126) 04/15/25 00:16
Total Protein 6.8 g/dl (6.3-8.2) 04/15/25 00:16
Albumin 4.4 g/dl (3.5-5.0) 04/15/25 00:16
�
Diagnostic Results:�as per HPI�
�
Assessment
49 y/o R handed F PMH (Down syndrome, anxiety/depression, SHELDON which resolved after tonsillectomy and adenoidectomy, obesity, lactose intolerance, scoliosis, vitamin D deficiency, lumbosacral radiculopathy) with 04/15/2025 lethargy, altered mental
status and right-sided weakness secondary to acute infarctions with greatest involvement of the left frontal lobe white matter and left lentiform nucleus and small foci of acute infarction in the left frontal and parietal lobe cortices with noted
proximal right M1 occlusion resulting in ADL, ambulatory, swallow, and speech dysfunction.
Plan�
PM&R�PT/OT to increase independence with ADLs, improve balance, coordination, endurance, strength, mobility, community reintegration, decreased burden of care on others and family education.�
�
CVA: Secondary prophylaxis with aspirin and Plavix for 21 days (last dose 05/07/25) followed by aspirin lifelong, statin, and blood pressure control (SBP less than 180 and diastolic less than 100 to participate with therapy for ischemic stroke).
Continue to monitor neurologic status.�
Right dominant hemiparesis: PT/OT .
Right Neglect/inattention: makes patient at increased risk for falls.� Will need therapy to work on scanning of environment for safe navigation.�
Dysphagia: speech, oral care protocol, aspiration precautions.� Advance Minced and moist with thin liquid diet as tolerated.�
Dysarthria: speech �
�
SHELDON: Resolved after tonsillectomy and adenoidectomy
Psych: Psychology consult.� Monitor mood, adjust lexapro as needed.� Ativan for anxiety. Trazodone 50 mg at night for sleep.
Skin: monitor for pressure sores/rashes/lesions.�
Pain: acetaminophen or mobic as needed.�
Bowel: Colace and Senna, PRN bisacodyl.�
Bladder: Time void, PVRs, PRN straight cath.�
GI Prophylaxis: Pantoprazole�
DVT Prophylaxis: Mechanical and Lovenox
Pulmonary: Incentive spirometry�
Obesity: Continue to counseling services director patient about diet adjustments to control obesity. Body habitus and increased force to move body and extremities causes further difficulty with functional tasks.�
Safety: Continue to reinforce assistance with all transfers.�
Code Status:� Full code�
Dispo�(date/plan/equipment needs): Home with family care.� Social history reviewed.�
Functional and Medical Goals:�Modified Independent with basic ADL�s, ambulation, transfers.�
Discharge Destination:�Acute inpatient rehabilitation
A total of 60 minutes were spent with the patient preparing for the evaluation, obtaining history, performing examination and evaluation, counseling, data review, case management, care coordination, mail order clerk, and EMR documentation.
�
Thank you for allowing me to care for your patient. Please contact me with any questions or concerns.
Consultation
-
Date/Time Consultation Performed: 04/17/2025
Requesting Provider: Dr. Kelton Gonzales
Performing Provider: Dr. Raghu Zarate
Reason for Consultation: Stroke
[2025-04-17 19:00] VITALS: BP 116/67
[2025-04-17] MEDS: DESYREL 50 MG PO (21:18)
[2025-04-17] MEDS: LEXAPRO 20 MG PO (21:18)
[2025-04-17] MEDS: ZYRTEC 10 MG PO (21:18)
[2025-04-17 23:00] VITALS: BP 101/52
[2025-04-18] VITALS (8 sets, daily range): BP systolic 109–119; BP diastolic 56–72; PULSE 96; BMI 31.0
[2025-04-18 06:18] LABS: Hematocrit 43.6 % (37.0-47.0); Hemoglobin 14.9 g/dL (12.0-16.0); Mean Corp Hgb Conc. 34.2 g/dL (33.0-37.0); Mean Corpuscular Volume 95.6 fL (81.0-99.0); Nucleated Red Blood Cells % 0 %; Platelet Count 228 10^3/uL (130-400); Red Cell Dist. Width 13.1 % (11.5-14.5)
[2025-04-18 06:43] LABS: Blood Urea Nitrogen 17 mg/dl (7-17); Calcium 9.2 mg/dl (8.4-10.2); Carbon Dioxide 24 mmol/L (22-30); Chloride 107 mmol/L (98-107); Estimated Creatinine Clearance 75 ml/min; Glucose 94 mg/dl (70-99); Potassium 4.2 mmol/L (3.5-5.1); Sodium 139 mmol/L (135-145); eGFR > 60.00
[2025-04-18] MEDS: LOW STRENGTH ASPIRIN 81 MG PO (08:57)
[2025-04-18] MEDS: PLAVIX 75 MG PO (08:58)
[2025-04-18] MEDS: OSCAL 500 + D 1000 MG PO (08:58)
[2025-04-18] MEDS: VITAMIN B-12 1000 MCG PO (08:58)
[2025-04-18] MEDS: MOBIC 7.5 MG PO (08:58)
[2025-04-18] MEDS: SINGULAIR 10 MG PO (08:58)
[2025-04-18] MEDS: REFRESH CELLUVISC GEL 1 DROPS BOTH EYES ×2 (08:58→20:11)
--- NOTE | 2025-04-18 11:16 | CM ---
[facility] rep said pt appropriate and has a bed for her today . notified.
Spoke with Mallory caregiver.She is in agreement with dc to [facility].
PT and OT notified to see pt today before dc.
Dionne from [facility] spoke with pts dad who agrees with dc.
HARLEY.
[phone]
fax [phone]
PLAN: Acute Rehab today after PT OT updates
[2025-04-18] MEDS: COLACE 100 MG PO ×2 (11:52→20:11)
[2025-04-18] MEDS: MIRALAX 17 GRAMS PO (11:52)
--- NOTE | 2025-04-18 12:34 | W.PN.HOSP.TC ---
Today's Communication/Plan
-
monitor vitals
see plan
dc to [facility] today if has BM
cw ASA and plavix
Assessment / Plan
Assessment / Plan
49y woman with PMH significant for Down's syndrome who presents to ED for evaluation of lethargy. CT found probable stroke.
Acute CVA
- R weakness appreciated on exam c/w this finding.
- Continue daily aspirin, added Plavix
Increase statin to high-dose
Neurology following
History of orthostatic hypotension
MRI with acute CVA. Echo 04/17 with preserved EF. CTA head and neck noted. Nothing acute needs to be done per neurology
PT/OT recommended acute rehab, PMNR consulted
Per speech recommendation continue with dysphagia diet
A1c 5.5
Per neurology patient should follow-up with cardiology outpatient for possible Linq device. Should also get hypercoagulable workup after 6 weeks per neurology
Lethargy / Altered Mental Status
- possible that this is secondary to CVA as noted above. Restart trazodone, hold methocarbamol
- Vitals / labs are otherwise unremarkable.
- No focal symptoms / recent complaints to suggest other process / etiology.
- Follow for clinical improvement.
Constipation
Laxative
Down's Syndrome
Anxiety / Depression
- Resume appropriate medications
- Monitor for sedation
DVT Prophylaxis: SCDs
Code Status: Full
General: No acute distress
HEENT: Moist mucous membranes and PERRLA
Respiratory: Clear; No Wheezes, Rales or Rhonchi
Cardiac: S1/S2 and Regular Rhythm; No Murmur
GI: Soft, Non Tender, Non Distended and Normal Bowel Sounds
Musculoskeletal: No Clubbing, No Cyanosis and No Edema
Neuro: Other (Very difficult neurologic exam as patient not following all the commands)
Anticipated Discharge: Today
Subjective/Interval History
-
Date of Service: April 18, 2025
No pain
Objective Data
-
Labs:
Laboratory Results
04/18/25
05:34
WBC 5.1
Hgb 14.9
Hct 43.6
Plt Count 228
Sodium 139
Potassium 4.2
Chloride 107
Carbon Dioxide 24
BUN 17
Creatinine 0.8
Glucose 94
Calcium 9.2
Vital Signs:
Vital Signs
Temp Pulse Resp BP Pulse Ox
97.6 F 87 16 117/71 96
04/18/25 11:00 04/18/25 11:00 04/18/25 11:00 04/18/25 11:00 04/18/25 11:00
I&O
04/17/25 04/18/25 04/19/25
06:59 06:59 06:59
Intake Total 1000 / 1000 960 / 960
Balance 1000 / 1000 960 / 960
[2025-04-18] MEDS: LIPITOR 80 MG PO (16:10)
[2025-04-18] MEDS: ZYRTEC 10 MG PO (21:37)
[2025-04-18] MEDS: LEXAPRO 20 MG PO (21:38)
[2025-04-18] MEDS: DESYREL 50 MG PO (21:38)
[2025-04-19 03:00] VITALS: BP 97/59
[2025-04-19 05:32] VITALS: BMI 31.1
[2025-04-19 06:02] LABS: Hematocrit 45.0 % (37.0-47.0); Hemoglobin 15.2 g/dL (12.0-16.0); Mean Corp Hgb Conc. 33.8 g/dL (33.0-37.0); Mean Corpuscular Volume 95.3 fL (81.0-99.0); Nucleated Red Blood Cells % 0 %; Platelet Count 238 10^3/uL (130-400); Red Cell Dist. Width 13.0 % (11.5-14.5)
[2025-04-19 06:32] LABS: Blood Urea Nitrogen 18 mg/dl (7-17); Calcium 8.8 mg/dl (8.4-10.2); Carbon Dioxide 25 mmol/L (22-30); Chloride 108 mmol/L (98-107); Estimated Creatinine Clearance 67 ml/min; Glucose 111 mg/dl (70-99); Potassium 4.3 mmol/L (3.5-5.1); Sodium 139 mmol/L (135-145); eGFR > 60.00
[2025-04-19] MEDS: PLAVIX 75 MG PO (08:20)
[2025-04-19] MEDS: OSCAL 500 + D 1000 MG PO (08:20)
[2025-04-19] MEDS: LOW STRENGTH ASPIRIN 81 MG PO (08:20)
[2025-04-19] MEDS: VITAMIN B-12 1000 MCG PO (08:20)
[2025-04-19] MEDS: MIRALAX 17 GRAMS PO (08:20)
[2025-04-19] MEDS: COLACE 100 MG PO (08:20)
[2025-04-19] MEDS: SINGULAIR 10 MG PO (08:20)
[2025-04-19] MEDS: MOBIC 7.5 MG PO (08:20)
[2025-04-19] MEDS: REFRESH CELLUVISC GEL 1 DROPS BOTH EYES (08:20)
[2025-04-19 08:40] VITALS: BP 114/78
[2025-04-19 09:47] VITALS: BMI 31.1
[2025-04-19 11:21] VITALS: BP 113/77
--- NOTE | 2025-04-19 11:36 | CM ---
MD indicated ready for discharge.
Pt needs BM.Medicines given.
[facility] rep said pt appropriate and has a bed for her today . notified.
Spoke with Shyamangidara caregiver.She is in agreement with dc to [facility].
PT and OT notified to see pt today before dc.
[facility] spoke with pts dad who agrees with dc.
[place].
[phone]
fax [phone]
PLAN: Acute Rehab today after BM
--- NOTE | 2025-04-19 11:49 | W.PN.HOSP.TC ---
Addendum entered and electronically signed by Kelton Gonzales MD 04/19/25 12:36:
Time of discharge 38 minutes
Original Note:
Today's Communication/Plan
-
monitor vitals
see plan
cw laxatives; belly soft. per CM need BM prior to dc to [facility]
dulcolax suppository
cw ASA and plavix
discussed with caregiver
Assessment / Plan
Assessment / Plan
49y woman with PMH significant for Down's syndrome who presents to ED for evaluation of lethargy. CT found probable stroke.
Acute CVA
- R weakness appreciated on exam c/w this finding.
- Continue daily aspirin, added Plavix. Continue with dual antiplatelet therapy till 05/07/2025. Starting 05/08 discontinue Plavix and continue aspirin indefinitely
Increase statin to high-dose
Neurology following
History of orthostatic hypotension
MRI with acute CVA. Echo 04/17 with preserved EF. CTA head and neck noted. Nothing acute needs to be done per neurology
PT/OT recommended acute rehab, PMNR consulted
Per speech recommendation continue with dysphagia diet
A1c 5.5
Per neurology patient should follow-up with cardiology outpatient for possible Linq device. Should also get hypercoagulable workup after 6 weeks per neurology
Lethargy / Altered Mental Status
- possible that this is secondary to CVA as noted above. Restart trazodone, hold methocarbamol
- Vitals / labs are otherwise unremarkable.
- No focal symptoms / recent complaints to suggest other process / etiology.
- Follow for clinical improvement.
Constipation
Laxatives
Dulcolax suppository
Down's Syndrome
Anxiety / Depression
- Resume appropriate medications
- Monitor for sedation
DVT Prophylaxis: SCDs
Code Status: Full
General: No acute distress
HEENT: Moist mucous membranes and PERRLA
Respiratory: Clear; No Wheezes, Rales or Rhonchi
Cardiac: S1/S2 and Regular Rhythm; No Murmur
GI: Soft, Non Tender, Non Distended and Normal Bowel Sounds
Musculoskeletal: No Clubbing, No Cyanosis and No Edema
Neuro: Other (Very difficult neurologic exam as patient not following all the commands)
Anticipated Discharge: Today
Subjective/Interval History
-
Date of Service: April 19, 2025
denies pain
Objective Data
-
Labs:
Laboratory Results
04/19/25
05:47
WBC 5.0
Hgb 15.2
Hct 45.0
Plt Count 238
Sodium 139
Potassium 4.3
Chloride 108 H
Carbon Dioxide 25
BUN 18 H
Creatinine 0.9
Glucose 111 H
Calcium 8.8
Vital Signs:
Vital Signs
Temp Pulse Resp BP Pulse Ox
97.7 F 85 16 113/77 94
04/19/25 11:21 04/19/25 11:21 04/19/25 11:21 04/19/25 11:21 04/19/25 11:21
I&O
04/18/25 04/19/25 04/20/25
06:59 06:59 06:59
Intake Total 960 / 960 1220 / 1220
Balance 960 / 960 1220 / 1220
[2025-04-19] MEDS: DULCOLAX 10 MG RECTAL (12:04)
--- NOTE | 2025-04-19 12:35 | W.DCSUMMARY ---
Discharge Summary
Discharge Data
Date of Admission: 04/15/25
Date of Discharge: 04/19/25
-
Pending Results: Yes
Hospital Course
49-year-old female with past medical history of Down syndrome, hypertension came to the hospital with right-sided weakness along with facial droop consistent with acute CVA. MRI was consistent with acute CVA. Patient was seen by neurology
throughout hospitalization. Patient was started on aspirin and Plavix which was instructed to continue for 21 days and then discontinue Plavix and continue aspirin indefinitely. Echocardiogram was done which showed preserved EF patient was also
recommended to follow-up with cardiology outpatient for possible Linq device. Neurology also recommended patient to get hypercoagulable workup in 6 weeks with them. Per physical therapy recommendation patient was started on dysphagia diet. With
patient also had constipation on this hospitalization which continue to improve with laxatives. Patient was also evaluated by physical therapy who recommended acute rehab. Once patient was accepted to acute rehab and was feeling better, she was
then discharged to [facility] with instructions to follow-up with all her physicians outpatient.
Discharge Plan
-
Patient Disposition: Acute Rehab Facility
Discharge Diagnosis/Procedures: Acute CVA
Hyperlipidemia
Constipation
Down syndrome
Anxiety/depression
Condition: Fair
Diet: Other diet
Additional Diets: Minced and moist diet with thin liquids
Activity: With assistance and As tolerated
Driving Restrictions: Not until seen by your Dr
Bathing Restrictions: None
Activity Restrictions/Additional Instructions:
patient should follow-up with cardiology outpatient for possible Linq device. Should also get hypercoagulable workup after 6 weeks per neurology
Continue with dual antiplatelet therapy till 05/07/2025. Starting 05/08 discontinue Plavix and continue aspirin indefinitely
Referrals:
Willy Johnson MD [Active, Cardiology] - in two weeks
Mata Whatley MD [Family Provider, [facility]] - in less than 1 week
Kumar Lnyn MD [Active, Neurology] - in two to three weeks
Prescriptions:
New
atorvastatin 80 mg Tablet
80 mg PO QPM Qty: 0 0RF
polyethylene glycol 3350 17 gram Powder In Packet
17 g PO DAILY Qty: 0 0RF
cyanocobalamin (vitamin B-12) [Vitamin B-12] 1,000 mcg Tablet
1,000 mcg PO DAILY Qty: 0 0RF
clopidogrel 75 mg Tablet
75 mg PO DAILY Qty: 0 0RF
docusate sodium 100 mg Capsule
100 mg PO BID Qty: 0 0RF
aspirin 81 mg Tablet,Chewable
81 mg PO DAILY Qty: 0 0RF
Continued
acetaminophen 500 mg Capsule
500 mg PO Q6HPRN PRN (Reason: PAIN)
Calcium 500 + D tablet
1,000 mg PO 1XD
Rx Instructions:
2-500mg tabs once daily @ 0900
Calcium Antacid 500 mg tablet
500 mg PO Q6HPRN PRN (Reason: Heartburn)
Rx Instructions:
chewable
Cepacol Maximum Strength
1 lillian PO QIDPRN PRN (Reason: sore throat)
cetirizine 10 mg Tablet
10 mg PO QHS
Rx Instructions:
Once daily @ 0900
Ear Drops
5 drp EACH EAR WEEKLY
Rx Instructions:
once week;y Wednesday @ 2099
erythromycin
5 mg ophthalmic (eye) QHS PRN (Reason: stabilize ocular surface)
Rx Instructions:
1 cm ribbon at bedtime into lower eyelid of both eyes as needed.
escitalopram oxalate 20 mg Tablet
20 mg PO QHS
Rx Instructions:
1-20mg tab daily @ 2099
ipratropium bromide nasal spray syringe
2 spray inhalation 2XD
Rx Instructions:
give 2 sprays into each nostril 2x daily, 899 & 2099
melatonin 10 mg Capsule
10 mg PO QHS
Rx Instructions:
1x day @ 2100
meloxicam 7.5 mg Tablet
7.5 mg PO 1XD
Rx Instructions:
1x daily @ 0900
montelukast 10 mg Tablet
10 mg PO 1XD
Rx Instructions:
1x day @ 0900
Mucinex DM
1 tab PO [id number] PRN (Reason: cough/congestion )
Rx Instructions:
1200-60mg tab
olopatadine
1 drp BOTH EYES Q12H
Rx Instructions:
0.1% EYE DROP, 2X DAY 899 & 2099
[place] Bismol tablet
1 tab PO BIDPRN PRN (Reason: Diarrhea )
Sodium Fluoride 5000 Dry Mouth
1 applic PO Q12H
Rx Instructions:
Paste used 2x day @ 899 & 2099. Apply after brushing teeth with finger or toothbrush. Do not rinse for 30 minutes.
trazodone
50 mg PO QHS
Rx Instructions:
1x day @ 2100
carboxymethylcellulose sodium 1 % Drops, Liquid Gel
1 drp BOTH EYES 6XD PRN (Reason: DRY EYES)
Held
methocarbamol 500 mg Tablet
500 mg PO TID
Hold Instructions: restart if not sedated
Discharge Orders:
Discharge Patient (As Directed); Ordered 04/19/25
Ordered By: Kelton Gonzales
Discharge Date and Time
Discharge Date/Time: 04/19/25 14:16
Print Language: BULGARIAN
== END 2025-04-19 14:16 | DRG 65 ==
LOC: 3 WEST ACU 04:53
PROVIDERS: ADMITTING PHYSICIAN Hospitalist; ATTENDING PHYSICIAN Internal Medicine; CONSULT PHYSICIAN Physical Medicine & Rehabilitation; CONSULT PHYSICIAN Psychiatry & Neurology Neurology; EMERGENCY PHYSICIAN Emergency Medicine; FAMILY PHYSICIAN Family Medicine
DX: I63.89 Other cerebral infarction (principal); G81.91 Hemiplegia, unspecified affecting right dominant side; G93.49 Other encephalopathy; G47.33 Obstructive sleep apnea (adult) (pediatric); R29.810 Facial weakness; Q90.9 Down syndrome, unspecified; E78.5 Hyperlipidemia, unspecified; E55.9 Vitamin D deficiency, unspecified; E73.9 Lactose intolerance, unspecified; F32.A Depression, unspecified; F41.9 Anxiety disorder, unspecified; G90.A Postural orthostatic tachycardia syndrome [POTS]; K59.00 Constipation, unspecified; I10 Essential (primary) hypertension; M41.9 Scoliosis, unspecified; M54.17 Radiculopathy, lumbosacral region; E66.9 Obesity, unspecified; Z79.82 Long term (current) use of aspirin; Z79.02 Long term (current) use of antithrombotics/antiplatelets; Z68.32 Body mass index [BMI] 32.0-32.9, adult
CPT/HCPCS: 51798; 70450; 70496; 70498; 70551; 80048; 80053; 80061; 81003; 82607; 82962; 83036; 84443; 85025; 85027; 86618; 87070; 92507; 92523; 92526; 92610; 93005; 93306; 96374; 97116; 97163; 97167; 97530; 97535; 99285; Q9967

== ENCOUNTER 2025-06-04 10:23 | Outpatient (RCR) | payer MEDICARE, MEDICAID, SELFPAY | END 2025-06-04 23:59 | disposition home or self-care (01) | LOC: RST 10:23 | PROVIDERS: ATTENDING PHYSICIAN Physical Medicine & Rehabilitation; FAMILY PHYSICIAN Family Medicine | DX: I69.351 Hemiplegia and hemiparesis following cerebral infarction affecting right dominant side (principal); I69.318 Other symptoms and signs involving cognitive functions following cerebral infarction; R26.89 Other abnormalities of gait and mobility; I69.328 Other speech and language deficits following cerebral infarction; Z73.6 Limitation of activities due to disability; Q90.9 Down syndrome, unspecified | CPT/HCPCS: 92507; 92523; 97110; 97112; 97163; 97530 ==

== ENCOUNTER → 2025-06-08 11:10 | Outpatient (REF) | payer MEDICARE, MEDICAID, SELFPAY | LOC: DHSLP 11:10 | PROVIDERS: ATTENDING PHYSICIAN Internal Medicine Critical Care Medicine; FAMILY PHYSICIAN Chiropractor | DX: G47.33 Obstructive sleep apnea (adult) (pediatric) (principal); R09.02 Hypoxemia | CPT/HCPCS: 95800 ==

== ENCOUNTER 2025-07-05 10:06 | Outpatient (RCR) | payer MEDICARE, MEDICAID, SELFPAY | END 2025-07-05 23:59 | disposition home or self-care (01) | LOC: ROT 10:06 | PROVIDERS: ATTENDING PHYSICIAN Physical Medicine & Rehabilitation; FAMILY PHYSICIAN Family Medicine | DX: I69.351 Hemiplegia and hemiparesis following cerebral infarction affecting right dominant side (principal); I69.318 Other symptoms and signs involving cognitive functions following cerebral infarction; R26.89 Other abnormalities of gait and mobility; I69.328 Other speech and language deficits following cerebral infarction; Z73.6 Limitation of activities due to disability; Q90.9 Down syndrome, unspecified | CPT/HCPCS: 92507; 97110; 97112; 97116; 97167; 97530; 97535 ==

== ENCOUNTER 2025-07-30 16:02 | Emergency (ER) | payer MEDICARE, MEDICAID, SELFPAY ==
[2025-07-30 16:04] VITALS: BP 125/70
[2025-07-30 16:35] LABS: Hematocrit 40.3 % (37.0-47.0); Hemoglobin 13.4 g/dL (12.0-16.0); Mean Corp Hgb Conc. 33.3 g/dL (33.0-37.0); Mean Corpuscular Volume 99.8 fL (81.0-99.0); Nucleated Red Blood Cells % 0 %; Platelet Count 210 10^3/uL (130-400); Red Cell Dist. Width 14.0 % (11.5-14.5)
[2025-07-30 16:39] LABS: ALT (SGPT) 40 U/L (0-35); AST (SGOT) 32 U/L (14-36); Albumin 4.5 g/dl (3.5-5.0); Alkaline Phosphatase 65 U/L (38-126); Blood Urea Nitrogen 16 mg/dl (7-17); Calcium 9.2 mg/dl (8.4-10.2); Carbon Dioxide 32 mmol/L (22-30); Chloride 104 mmol/L (98-107); Glucose 83 mg/dl (70-99); Potassium 4.1 mmol/L (3.5-5.1); Sodium 140 mmol/L (135-145); Total Protein 6.9 g/dl (6.3-8.2); eGFR > 60.00
[2025-07-30 19:06] VITALS: BMI 34.6
[2025-07-30 19:49] LABS: Urine Character Clear (Clear)
--- NOTE | 2025-07-30 20:44 | ED.GENMED ---
History of Present Illness
<Dayo Pitt DO - Last Filed: 07/30/25 20:45>
General
Chief Complaint: Abdominal Pain
Source: patient and child care director
Time Seen by Provider: 07/30/25 18:33
History of Present Illness
History of Present Illness:
Note:
CHIEF COMPLAINT(S)
Abdominal pain
HISTORY OF PRESENT ILLNESS
The patient is a 50-year-old female with a history of Down syndrome, presenting with abdominal pain localized to the middle of the abdomen. As per her caregiver, the pain started on the same day as the visit, associated with increased flatulence
and an incident of diarrhea that was not solid. The patient has experienced episodes of crying and discomfort, with rocking and shouting due to the pain. There has been a recent history of bowel irregularities since a stroke in April, with
intermittent constipation requiring Miralax and fiber supplements, along with a stool softener. The patient�s bowel movements show inconsistency, with periods of regularity followed by constipation. The abdominal tenderness is mainly in the lower
abdomen with no distension, while the upper abdomen shows no tenderness.
PHYSICAL EXAM
General: Alert, no acute distress.
Skin: Warm, dry.
Head: Normocephalic, atraumatic.
Neck: Supple, trachea midline.
Eye, Ears, Nose, Mouth, and Throat: Oral mucosa moist.
Cardiovascular: Normal peripheral perfusion, Heart is regular without murmur.
Respiratory: Respirations are non-labored.
Gastrointestinal: Tenderness in the lower abdomen, no distension, normal bowel sounds.
Back: Normal range of motion, normal alignment.
Musculoskeletal: Normal range of motion, normal strength.
Neurological: Alert and oriented to person, place, time, and situation, no focal neurological deficit observed.
Psychiatric: Cooperative, appropriate mood & affect.
PROBLEM LIST
Acute:
- Abdominal pain
- Bowel irregularities
PLAN
A computed tomography (CT) scan of the abdomen will be performed to assess for possible colitis, diverticulitis, appendicitis, or any other causes of the patient�s symptoms. The scan should provide more detailed information on the abdominal
complaint than plain X-rays and help rule out any serious underlying conditions.
DIFFERENTIAL DIAGNOSIS
The Differential Diagnosis includes, in no particular order and is not limited to:
- Colitis
- Diverticulitis
- Appendicitis
- Constipation
- Bowel obstruction
- Irritable bowel syndrome
- Gastroenteritis
- Inflammatory bowel disease
- Mesenteric ischemia
- Functional abdominal pain syndrome
Disposition:
SUMMARY OF ENCOUNTER
The patient is a 50-year-old female with a history of Down syndrome, presenting with lower abdominal pain. She has a history of bowel irregularities following a stroke. Laboratory tests, including a complete blood count (CBC) and comprehensive
metabolic panel (CMP), were normal, and a urinalysis was negative. Despite her complaint, the patient appears well and is in no acute distress. Given her challenging history, an abdominal and pelvic CT scan was ordered to rule out intra-abdominal
pathology. Outpatient management is planned if the CT scan result is negative.
ASSESSMENT
The patient presents with lower abdominal pain of uncertain etiology. Her normal laboratory results are reassuring, but imaging is required to rule out conditions such as colitis, diverticulitis, or appendicitis.
PLAN
A CT scan of the abdomen and pelvis will be performed to assess for potential intra-abdominal pathology. The patient will be managed as an outpatient if the CT scan is negative and no acute issues are identified.
INDEPENDENT REVIEW OF LABS AND INTERPRETATION OF TESTS
My independent review of the CBC is normal.
My independent review of the CMP is normal.
My independent review of the urinalysis is negative.
MEDICATION RECONCILIATION
No new medications were administered or prescribed during this encounter.
MEDICAL DECISION MAKING
- Number and Complexity of Problems Addressed: Chronic conditions affecting care include Down syndrome, history of stroke with bowel irregularities leading to intermittent constipation. A differential diagnosis of colitis, diverticulitis,
appendicitis, constipation, bowel obstruction, irritable bowel syndrome, gastroenteritis, inflammatory bowel disease, mesenteric ischemia, and functional abdominal pain syndrome is considered.
- Data:
* Category 1:
- My independent interpretation of the CBC, CMP, and urinalysis.
* Category 2: N/A
* Category 3: N/A
- Risk:
Consideration of Admission/Observation: Escalation of care including admission/observation was considered given the complexity and risk of the patients presenting complaint, exam findings, and/or their underlying comorbidities. However, ultimately I
feel the patient is safe for outpatient management with close follow-up. Reasoning: Work-up reassuring, does not reveal any acute life/organ threatening processes, patients symptoms well-controlled upon reevaluation, reexamination is reassuring,
vitals are stable, patient agreeable with discharge, reliable for follow-up.
DIAGNOSIS
- Abdominal pain, unspecified (R10.9)
- Bowel irregularities, history of stroke (I69.399)
Past History
<Dayo Pitt DO - Last Filed: 07/30/25 20:45>
Past History
ED Past Medical History: Seizures, Psychiatric and Other (Down's syndrome)
ED Past Surgical History: None
Social History
Tobacco: Non-smoker
Alcohol: None
Drug: None
Personal: Single
Living: other (Support home)
Employment: Not employed
Family History
Family History: Unable to obtain
Phy Exam
<Dayo Pitt DO - Last Filed: 07/30/25 20:45>
Physical Exam
Physical Exam:
.
Course
<Dayo Pitt DO - Last Filed: 07/30/25 20:45>
Orders/Labs/Results
Orders:
Orders
07/30/25 16:17
CMP [Comprehensive Metabolic Panel] Urgent
Complete Blood Count/With Diff Urgent
07/30/25 18:54
CT Abd/pelvis W Iv Cont Urgent
Comment:
Reason For Exam: lower abd pain
07/30/25 19:38
Urinalysis Reflex To Culture Urgent
Date Specimen was Collected: 07/30/25
Time Specimen was Collected: 19:37
Abnormal Lab Results
07/30/25
16:17
WBC 4.0 L 10^3/uL
(4.8-10.8)
RBC 4.04 L 10^6/uL
(4.20-5.40)
MCV 99.8 H fL
(81.0-99.0)
MCH 33.2 H pg
(27.0-31.0)
MPV 11.9 H fL
(7.4-10.4)
Carbon Dioxide 32 H mmol/L
(22-30)
ALT 40 H U/L
(0-35)
07/30/25 16:17
07/30/25 16:17
Vital Signs
Initial and Last Documented VS:
Initial Vital Signs
Temp Pulse Resp BP Pulse Ox
97.8 F 62 20 125/70 99
07/30/25 16:04 07/30/25 16:04 07/30/25 16:04 07/30/25 16:04 07/30/25 16:04
Last Documented Vital Signs
Temp Pulse Resp BP Pulse Ox
97.8 F 64 18 123/70 100
07/30/25 16:04 07/30/25 21:10 07/30/25 21:10 07/30/25 21:10 07/30/25 21:10
<Astrid Rico, DO - Last Filed: 07/30/25 22:07>
Orders/Labs/Results
Orders:
Orders
07/30/25 16:17
CMP [Comprehensive Metabolic Panel] Urgent
Complete Blood Count/With Diff Urgent
07/30/25 18:54
CT Abd/pelvis W Iv Cont Urgent
Comment:
Reason For Exam: lower abd pain
07/30/25 19:38
Urinalysis Reflex To Culture Urgent
Date Specimen was Collected: 07/30/25
Time Specimen was Collected: 19:37
Abnormal Lab Results
07/30/25
16:17
WBC 4.0 L 10^3/uL
(4.8-10.8)
RBC 4.04 L 10^6/uL
(4.20-5.40)
MCV 99.8 H fL
(81.0-99.0)
MCH 33.2 H pg
(27.0-31.0)
MPV 11.9 H fL
(7.4-10.4)
Carbon Dioxide 32 H mmol/L
(22-30)
ALT 40 H U/L
(0-35)
07/30/25 16:17
07/30/25 16:17
Vital Signs
Initial and Last Documented VS:
Initial Vital Signs
Temp Pulse Resp BP Pulse Ox
97.8 F 62 20 125/70 99
07/30/25 16:04 07/30/25 16:04 07/30/25 16:04 07/30/25 16:04 07/30/25 16:04
Last Documented Vital Signs
Temp Pulse Resp BP Pulse Ox
97.8 F 64 18 123/70 100
07/30/25 16:04 07/30/25 21:10 07/30/25 21:10 07/30/25 21:10 07/30/25 21:10
Delmarlt;Dayo Pitt DO - Last Filed: 07/30/25 20:45>
*Pulse Oximetry
SaO2: 99
Oxygen Mode of Delivery: Room air
Patient hypoxic: no
*Critical Care Note
Total Time (30-74mins, 75-104mins- exclusive of procedures): Not Applicable
<Astrid Rico DO - Last Filed: 07/30/25 22:07>
Update Note
Update Note:
Attending signout note (Astrid Rico DO)
21:00 - Assuming care of patient, 50-year-old female with history of Down syndrome presenting for abdominal discomfort. Hemodynamically stable in the emergency department. Noted to have mild lower abdominal tenderness on exam. Laboratory analysis
reviewed, unremarkable. Pending CT abdomen and pelvis
22:00-CT shows some nonspecific bladder wall thickening. Urine without any sign of infection. At this time no additional concerning features on imaging or workup. Patient otherwise remains hemodynamically stable on my assessment. Suspect likely
gas pains. Feel stable for discharge. Return precautions discussed and patient verbalized understanding
ED Attending Note
<Dayo Pitt DO - Last Filed: 07/30/25 20:45>
-
Portions of this chart may have been created with voice recognition software.� Occasional wrong word or��sound alike� substitutions may have occurred due to the inherent limitations of voice recognition software.
Discharge Plan
Departure
Prescriptions:
No Action
acetaminophen 500 mg Capsule
500 mg PO Q6HPRN PRN (Reason: PAIN)
Calcium 500 + D
1,000 mg PO 1XD
Rx Instructions:
2-500mg tabs once daily @ 0900
Calcium Antacid 500 mg tablet
500 mg PO Q6HPRN PRN (Reason: Heartburn)
Rx Instructions:
chewable
cetirizine 10 mg Tablet
10 mg PO QHS
Rx Instructions:
Once daily @ 0900
Ear Drops
5 drp EACH EAR WEEKLY
Rx Instructions:
once week;y Wednesday @ 2100
erythromycin 5 mg
5 mg ophthalmic (eye) QHS PRN (Reason: stabilize ocular surface)
Rx Instructions:
1 cm ribbon at bedtime into lower eyelid of both eyes as needed.
ipratropium bromide nasal spray syringe
2 spray inhalation 2XD
Rx Instructions:
give 2 sprays into each nostril 2x daily, 899 & 2099
meloxicam 7.5 mg Tablet
7.5 mg PO 1XD
Rx Instructions:
1x daily @ 0900
montelukast 10 mg Tablet
10 mg PO 1XD
Rx Instructions:
1x day @ 0900
Mucinex DM tablet
1 tab PO [id number] PRN (Reason: cough/congestion )
Rx Instructions:
1200-60mg tab
olopatadine
1 drp BOTH EYES Q12H
Rx Instructions:
0.1% EYE DROP, 2X DAY 899 & 2099
[place] Bismol tablet
1 tab PO BIDPRN PRN (Reason: Diarrhea )
Sodium Fluoride 5000 Dry Mouth
1 applic PO Q12H
Rx Instructions:
Paste used 2x day @ 899 & 2099. Apply after brushing teeth with finger or toothbrush. Do not rinse for 30 minutes.
carboxymethylcellulose sodium 1 % Drops, Liquid Gel
1 drp BOTH EYES 6XD PRN (Reason: DRY EYES)
docusate sodium 50 mg/5 mL Liquid
100 mg PO BIDPRN PRN (Reason: Constipation) 30 Days Qty: 30 0RF
methocarbamol 500 mg Tablet
500 mg PO TID PRN (Reason: Muscle spasms) Qty: 0 0RF
atorvastatin 80 mg Tablet
80 mg PO QPM 30 Days Qty: 30 0RF
polyethylene glycol 3350 17 gram Powder In Packet
17 g PO DAILY Qty: 0 0RF
clopidogrel 75 mg Tablet
75 mg PO DAILY 6 Days Qty: 6 0RF
escitalopram oxalate 20 mg Tablet
20 mg PO QHS Qty: 0 0RF
Rx Instructions:
1-20mg tab daily @ 2099
melatonin 10 mg Capsule
10 mg PO QHS Qty: 0 0RF
Rx Instructions:
1x day @ 2100
trazodone 50 mg tablet
50 mg PO QHS Qty: 0 0RF
Rx Instructions:
1x day @ 2100
aspirin 81 mg Tablet,Chewable
81 mg PO DAILY Qty: 100 0RF
aspirin 81 mg Tablet,Chewable
81 mg PO DAILY Qty: 100 0RF
cyanocobalamin (vitamin B-12) [Vitamin B-12] 1,000 mcg Tablet
1,000 mcg PO DAILY 30 Days Qty: 30 0RF
Referrals:
Mata Whatley MD [Family Provider, Family Practice]
Interventions
Interventions:
*Risk Screen - Suicide Last Done: 07/30/25 19:06
*General Assessment Last Done: 07/30/25 16:04
*Neglect/Abuse Screening Last Done: 07/30/25 19:06
*ED- Fall Risk Assessment Last Done: 07/30/25 19:06
*ED COVID-19 Vaccine History Last Done: 07/30/25 19:06
*ED Influenza Vaccine History Last Done: 07/30/25 19:06
RT-Sxanef-Qlnvcceepl Assessment Last Done: 07/30/25 19:33
Discharge Date and Time
Print Language: VINCENTIAN
[2025-07-30 21:10] VITALS: BP 123/70
== END 2025-07-30 22:50 | disposition home or self-care (01) ==
LOC: EMR 16:02
PROVIDERS: Emergency Medicine; EMERGENCY PHYSICIAN Emergency Medicine; FAMILY PHYSICIAN Family Medicine
DX: R10.9 Unspecified abdominal pain (principal); Q90.9 Down syndrome, unspecified; K62.89 Other specified diseases of anus and rectum; Z86.73 Personal history of transient ischemic attack (TIA), and cerebral infarction without residual deficits
CPT/HCPCS: 99284; 74177; 80053; 81003; 85025; Q9967

== ENCOUNTER 2025-07-31 10:44 | Outpatient (RCR) | payer MEDICARE, MEDICAID, SELFPAY | END 2025-07-31 23:59 | disposition home or self-care (01) | LOC: ROT 10:44 | PROVIDERS: ATTENDING PHYSICIAN Physical Medicine & Rehabilitation; FAMILY PHYSICIAN Family Medicine | DX: I69.351 Hemiplegia and hemiparesis following cerebral infarction affecting right dominant side (principal); I69.318 Other symptoms and signs involving cognitive functions following cerebral infarction; R26.89 Other abnormalities of gait and mobility; I69.328 Other speech and language deficits following cerebral infarction; Z73.6 Limitation of activities due to disability; Q90.9 Down syndrome, unspecified | CPT/HCPCS: 92507; 97110; 97112; 97530; 97535 ==

== ENCOUNTER 2025-09-05 10:27 | Outpatient (RCR) | payer MEDICARE, MEDICAID, SELFPAY | END 2025-09-05 23:59 | disposition home or self-care (01) | LOC: ROT 10:27 | PROVIDERS: ATTENDING PHYSICIAN Physical Medicine & Rehabilitation; FAMILY PHYSICIAN Family Medicine | DX: I69.351 Hemiplegia and hemiparesis following cerebral infarction affecting right dominant side (principal); I69.318 Other symptoms and signs involving cognitive functions following cerebral infarction; R26.89 Other abnormalities of gait and mobility; I69.328 Other speech and language deficits following cerebral infarction; Z73.6 Limitation of activities due to disability; Q90.9 Down syndrome, unspecified | CPT/HCPCS: 92507; 97110; 97112; 97535 ==